=== PATIENT | male | born 2000 | race Hispanic/Latino ===

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

== ENCOUNTER 2021-09-14 09:19 | Outpatient (CLI) | payer OTHER | END 2021-09-14 09:20 | disposition home or self-care (01) | LOC: BICMAMMO 09:19 | PROVIDERS: ATTEND Nurse Practitioner Family | DX: N62 Hypertrophy of breast (principal) | CPT/HCPCS: 77066; G0279 ==

== ENCOUNTER 2022-04-12 13:06 | Outpatient (CLI) | payer OTHER ==
[2022-04-12 14:16] LABS: Hemoglobin 14.6 g/dL (13.5-17.5); Mean Corpuscular Hemoglobin 29.9 pg (27.0-33.0); Mean Corpuscular Volume 88.1 fl (81.2-95.1); Mean Platelet Volume 11.4 fl (7.4-10.4); Platelet Count 245 10x3/uL (150-450); RBC Distribution Width 13.2 % (11.5-14.5); Red Blood Cell (RBC) Count 4.88 10x6/uL (4.32-5.72); White Blood Cell (WBC) Count 5.7 10x3/uL (3.5-10.5)
[2022-04-12 14:35] LABS: Bilirubin Neg (Negative); Blood, Urine Negative (Negative); Glucose, Urine (Dipstick) Normal (Negative); Ketone, Urine Negative (Negative); Leukocyte Negative (Negative); Nitrite Negative (Negative); Protein, Urine (Dipstick) Negative (Neg-Trace); Specific Gravity, Urine 1.015 (1.005-1.030); Urobilinogen Normal mg/dL (Less than 2)
[2022-04-12 14:36] LABS: Bacteria/HPF None Seen HPF (None Seen); Clarity Clear (Clear); RBC/HPF None Seen HPF (0-3); Squamous Epithelial None Seen HPF (0-3); WBC/HPF None Seen HPF (0-3)
[2022-04-12 14:37] LABS: Anion Gap 12 mmol/L (10-20); BUN (Urea Nitrogen) 17 mg/dL (8.9-20.6); Calc. Creatinine Clearance 0 mL/min (70-130); Calcium 9.6 mg/dL (7.8-10.44); Carbon Dioxide 27 mmol/L (22-29); Chloride 106 mmol/L (98-107); Estimated GFR 123; Glucose 84 mg/dL (70-105); Potassium 4.2 mmol/L (3.5-5.1); Sodium 141 mmol/L (136-145)
[2022-04-12 14:39] LABS: PTT 29.1 sec (22.0-33.0); Prothrombin Time 10.8 sec (9.5-12.1)
== END 2022-04-12 13:07 | disposition home or self-care (01) ==
LOC: LABBT 13:06
PROVIDERS: ATTEND Urology
DX: Z01.818 Encounter for other preprocedural examination (principal); N48.1 Balanitis; R35.0 Frequency of micturition
CPT/HCPCS: 80048; 81001; 85027; 85610; 85730; 87086; 93005; 93010

== ENCOUNTER 2022-04-21 09:47 | Day surgery (SDC) | payer OTHER ==
[2022-04-20 10:21] VITALS: BMI 25.4
[2022-04-21] MEDS ORDERED: Acetaminophen 500 MG TAB ONE (11:26)
[2022-04-21] MEDS ORDERED: Bacitracin Zinc Ointment 30 gm TUBE ONE (13:23)
[2022-04-21] MEDS ORDERED: Bupivacaine 0.25% HCL 30 ML VIAL ONE (13:23)
[2022-04-21] MEDS ORDERED: Fentanyl 250 MCG/5 ML VIAL ONE (13:25)
[2022-04-21] MEDS ORDERED: Midazolam HCl 2 mg/2 ml Vial ONE (13:25)
[2022-04-21] MEDS ORDERED: Sodium Chloride 0.9% 100 ML ONE (13:38)
[2022-04-21] MEDS ORDERED: CEFAZOLIN 2 GM VIAL ONE (13:38)
[2022-04-21] MEDS ORDERED: Ondansetron PF 4 MG/2 ML Vial ONE (13:45)
[2022-04-21] MEDS ORDERED: Dexamethasone 20 MG/5 ML VIAL ONE (13:45)
[2022-04-21] MEDS ORDERED: PROPOFOL 200 MG/20 ML VIAL ONE (13:45)
== END 2022-04-21 16:20 | disposition home or self-care (01) ==
LOC: SDC 09:47
PROVIDERS: ATTEND Urology
PROC: 0VTTXZZ Resection of Prepuce, External Approach (ICD-10-PCS; principal; 2022-04-21)
DX: N48.1 Balanitis (principal); N47.1 Phimosis
CPT/HCPCS: 88304; J1100; J2250; J2405; J2704; J3010; J3490; S0020

== ENCOUNTER 2024-12-30 20:55 | Emergency (ER) | payer BC ==
[2024-12-30] MEDS ORDERED: Ketorolac Tromethamine 30 MG (1 mL) VIAL ONE (21:25)
== END 2024-12-30 22:17 | disposition home or self-care (01) ==
LOC: ERS 20:55
DX: S89.91XA Unspecified injury of right lower leg, initial encounter (principal); W50.0XXA Accidental hit or strike by another person, initial encounter; Y93.66 Activity, soccer
CPT/HCPCS: 96372; 99283; J1885